=== PATIENT | female | born 1995 | race African-American/Black ===

== ENCOUNTER 2016-08-14 17:10 | Emergency (ER) | payer OTHER, MEDICAID ==
[~2016-08-14] VITALS: Ht 167.6 cm; Wt 60.0 kg
[~2016-08-14 17:10] MED LIST: AMOXICILLIN500 MG PO; BACTRIM DS1 TAB PO; FERR SULFATE325 MG PO; FIORICET PO; IBUPROFEN200 M1 OR; IRON CHEWS; LORTAB 5/3255 MG PO; MACRODANTIN100 MG PO; MOTRIN600 MG/TAB PO; PENICILLN VK500 MG PO; PRE-NATAL PO; PRENATAL1 TA1 PO; TYLENOL325 MG PO; ZOFRAN ODT4 MG PO
[2016-08-14] MEDS ORDERED: CLINDAMYCIN300 M1 PO (17:24)
[2016-08-14 17:36] VITALS: BP 114/72
== END 2016-08-14 17:45 | disposition home or self-care (01) | DRG 759 ==
LOC: ED 17:10
DX: N76.0 Acute vaginitis (principal)

== ENCOUNTER 2016-08-23 11:31 | Emergency (ER) | payer MEDICAID ==
[~2016-08-23] VITALS: Ht 167.6 cm; Wt 60.0 kg
[~2016-08-23 11:31] MED LIST changes: +CLINDAMYCIN300 M1 PO
[2016-08-23 11:36] VITALS: BP 103/54
[2016-08-23] MEDS ORDERED: PREDNISONE50 MG PO (11:40)
[2016-08-23] MEDS ORDERED: BENADRYL 50MG C50 MG PO (11:40)
[2016-08-24] MEDS ORDERED: MEDDOSEPAK PO (10:55)
== END 2016-08-23 12:00 | disposition home or self-care (01) | DRG 607 ==
LOC: ED 11:31
DX: R21 Rash and other nonspecific skin eruption (principal)

== ENCOUNTER 2016-08-24 00:47 | Emergency (ER) | payer MEDICAID ==
[~2016-08-24 00:47] MED LIST changes: +BENADRYL 50MG C50 MG PO; +PREDNISONE50 MG PO
[2016-08-24] MEDS ORDERED: MEDDOSEPAK PO (10:55)
== END 2016-08-24 01:15 | disposition left against medical advice (07) | DRG 951 ==
LOC: ED 00:47 → LWOBS 01:15
DX: Z91.19 Patient's noncompliance with other medical treatment and regimen (principal)

== ENCOUNTER 2016-08-24 09:54 | Emergency (ER) | payer MEDICAID ==
[~2016-08-24] VITALS: Ht 167.6 cm; Wt 66.0 kg
[2016-08-24] MEDS ORDERED: MEDDOSEPAK PO (10:55)
[2016-08-24 11:40] VITALS: BP 106/59
== END 2016-08-24 11:40 | disposition home or self-care (01) | DRG 950 ==
LOC: ED 09:54
DX: T36.8X5D Adverse effect of other systemic antibiotics, subsequent encounter (principal); L29.9 Pruritus, unspecified; R21 Rash and other nonspecific skin eruption

== ENCOUNTER 2018-03-16 09:18 | Emergency (ER) | payer OTHER, MEDICAID ==
[~2018-03-16] VITALS: Ht 167.6 cm; Wt 64.8 kg
[~2018-03-16 09:18] MED LIST changes: +MEDDOSEPAK PO
[2018-03-16] MEDS ORDERED: METRONIDAZOL500 MG PO (10:08)
[2018-03-16 10:16] VITALS: BP 110/74
== END 2018-03-16 10:16 | disposition home or self-care (01) | DRG 761 ==
LOC: ED 09:18
DX: N89.8 Other specified noninflammatory disorders of vagina (principal)

== ENCOUNTER 2020-05-14 | Observation (INO) | payer MEDICAID ==
[~2020-05-14] MED LIST changes: +METRONIDAZOL500 MG PO
--- NOTE | 2020-05-14 18:50 | NUR ---
PT C/O SEVERE ABD PAIN...THOUGHT IT WAS GAS AND TOOK MEDS WITHOUT RELIEF. TO ROOM VIA W/C FOR TRIAGE.
[2020-05-14 19:29] LABS: URINE BILIRUBIN - DIPSTICK NEGATIVE (NEGATIVE); URINE BLOOD DIPSTICK MODERATE (NEGATIVE); URINE COLOR YELLOW; URINE GLUCOSE - DIPSTICK NEGATIVE (NEGATIVE); URINE KETONE NEGATIVE (NEGATIVE); URINE LEUK ESTERASE NEGATIVE (NEGATIVE); URINE PROTEIN - DIPSTICK NEGATIVE (NEG-TRACE); URINE SPECIFIC GRAVITY >=1.030; URINE UROBILINOGEN - DIPSTICK 0.2 E.U./dL (0.2)
[2020-05-14 19:30] LABS: URINE NITRITE - DIPSTICK NEGATIVE (Negative)
[2020-05-14 19:39] LABS: URINE SQUAMOUS EPITHELIAL CELL FEW EPI/hpf (0-FEW); URINE WBC 0-2 WBC/hpf (0-5)
--- NOTE | 2020-05-14 20:00 | NUR ---
ATTEMPTED IV ACCESS WITHOUT SUCCESS, CHARGE NURSE NOTIFIED
--- NOTE | 2020-05-14 20:30 | NUR ---
PT VOMITED LARGE AMOUNT UNDIGESTED FOOD, MEDICATED ORDERED AND PAIN MEDICATION GIVEN WELL, IVF INFUSING ORDERED
[2020-05-14 20:36] LABS: ALKALINE PHOSPHATASE 61 u/l (38-126); AMYLASE 176 u/l (30-110); ANION GAP 13 (6-22 (CALC)); BUN 13 mg/dL (7-17); BUN/CREATININE RATIO 16 (12-20 (CALC)); CARBON DIOXIDE 23 mmol/l (22-30); CHLORIDE 104 mmol/l (95-108); CREATININE 0.8 mg/dL (0.5-1.0); GFR > 60 ML/MIN (>=60 (CALC)); GFR FOR AFR.AMER. > 60 ML/MIN (>=60 (CALC)); LIPASE 1123 u/l (23-300); POTASSIUM 3.3 mmol/l (3.5-5.1); SODIUM 136 mmol/l (137-146)
[2020-05-14 20:37] LABS: IMMATURE GRANULOCYTES 0.3 % (0.0-5.0); MEAN CORPUSCULAR HGB 34.1 pG CALC (26.0-32.0); MEAN CORPUSCULAR HGB CONC 33.2 g/dL CAL (32.0-36.0); NEUT# 8.33 thou/uL (2.00-7.15); RED BLOOD COUNT 3.81 mill/uL (4.20-5.60); RED CELL DISTRI WIDTH 12.1 % (11.5-15.5)
[2020-05-14 20:38] LABS: HEMATOCRIT 39.1 % (37.0-47.0); MEAN CELL VOLUME 102.6 fL CALC (80.0-100.0)
[2020-05-14 20:43] LABS: ALBUMIN 4.8 g/dL (3.2-5.0); BILIRUBIN, TOTAL 0.7 mg/dL (0.0-1.4); SGOT/AST 47 u/l (14-36); TOTAL PROTEIN 8.6 g/dL (6.3-8.2)
--- NOTE | 2020-05-14 21:00 | NUR ---
PT COMPLAINS THAT PAION IS BACK AND JUST BAD ON ARRIVAL, MD NOTIFIED WILL MEDICATE ON RETURN FROM RADIOLOGY.
--- NOTE | 2020-05-14 22:09 | NUR ---
PT RESTING AWARE OF AWAITING CT RESULTS, S.O. REMAINS AT BEDSIDE.
--- NOTE | 2020-05-14 22:27 | NUR ---
RADIOLGY CONTACT FOR CT RESTULS STILL PENDING
--- NOTE | 2020-05-14 22:58 | NUR ---
C/O PAIN 11/17. NOTIFIED.
--- NOTE | 2020-05-14 23:40 | NUR ---
PT MEDICATED ORDERED,E DUCATED REGARDING TIME RESTRAINTS ON PAIN MEDICATIONA ND NPO STATUS, AWARE OFPNEING ADMISSION CALL [facility] WITHIN REACH
--- NOTE | 2020-05-14 23:56 | NUR ---
REPORT CALLED TO [facility]
--- NOTE | 2020-05-15 00:03 | NUR ---
PT TRANSPORTED TO MED SURG VIA WHEELCHAIR, ALL BELONGINGS SENT WITH PT.
[2020-05-15 00:15] VITALS: BP 113/75
--- NOTE | 2020-05-15 00:55 | NUR ---
PT ARRIVED TO UNIT VIA WHEELCHAIR ESCORTED BY ER STAFF. PT C/O PAIN OT HER RUQ, PAINFUL TO PALPATION. ALL OTHER QUADRANTS ARE NON-PAINFUL. BS ACTIVE X 4. CARDIAC SOUNDS AND RYTHYMS ARE WNL. LUNGS CTA X ALL LOBES. SKIN INTACT. IV SITE TO LAC RUNNING D5 1/2 NS AT 125ML/HR. NO S/S OF IV INFECTION OR INFILTRATION. PULSES PALPABLE. PT IS ABLE TO AMBULATE INDEPENDENTLY, INSTRUCTED PT ON HOW TO UNPLUG IV FLUIDS TO TAKE WITH HER TO THE BATHROOM. DENIES URINARY COMPLICATIONS. PT ORIENTED TO THE ROOM, CALL S[facility]AGE, TV CONTROLS, AND LIGHTS. INSTRUCTED ON LOCATION OF THE BATHROOM AND WHEN TO CALL THE NURSE/RESTAURANT BARTENDER FOR HELP. WILL MONITOR THROUGHOUT SHIFT.
[2020-05-15 04:00] VITALS: BP 120/74
--- NOTE | 2020-05-15 04:27 | NUR ---
PT RESTING QUIETLY IN BED WITH HER EYES CLOSED. NO COMPLAINTS VOICED AT THIS TIME. BREATHING EVEN AND UNLABORED. IV FLUIDS CONTINUE TO LAC, 125ML/HR OF D5 1/2 NS. NO S/S OF IV INFECTION OR INFILTRATION NOTED. NO VOMITTING OR NAUSEA SINCE ARRIVING TO UNIT. WILL CONTINUE TO MONITOR.
[2020-05-15 04:32] LABS: HEMATOCRIT 36.4 % (37.0-47.0); HEMOGLOBIN 12.4 g/dl (12.0-16.0); IMMATURE GRANULOCYTES 0.4 % (0.0-5.0); MEAN CELL VOLUME 100.3 fL CALC (80.0-100.0); MEAN CORPUSCULAR HGB 34.2 pG CALC (26.0-32.0); MEAN CORPUSCULAR HGB CONC 34.1 g/dL CAL (32.0-36.0); NEUT# 9.91 thou/uL (2.00-7.15); RED BLOOD COUNT 3.63 mill/uL (4.20-5.60); RED CELL DISTRI WIDTH 11.9 % (11.5-15.5)
[2020-05-15 04:47] LABS: ALKALINE PHOSPHATASE 33 u/l (38-126); BILIRUBIN, TOTAL 0.8 mg/dL (0.0-1.4); BUN 9 mg/dL (7-17); BUN/CREATININE RATIO 14 (12-20 (CALC)); CARBON DIOXIDE 23 mmol/l (22-30); CHLORIDE 106 mmol/l (95-108); CREATININE 0.6 mg/dL (0.5-1.0); GFR > 60 ML/MIN (>=60 (CALC)); GFR FOR AFR.AMER. > 60 ML/MIN (>=60 (CALC)); SGOT/AST 34 u/l (14-36); SODIUM 134 mmol/l (137-146)
[2020-05-15 04:53] LABS: ALBUMIN 3.7 g/dL (3.2-5.0); ANION GAP 9 (6-22 (CALC)); POTASSIUM 4.1 mmol/l (3.5-5.1); TOTAL PROTEIN 6.6 g/dL (6.3-8.2)
--- NOTE | 2020-05-15 06:39 | NUR ---
PT C/O PIAN TO R UPPER QUADRANT. ADMINSTERED PRN PAIN MEDICATION PER ORDER. WILL MONITOR FOR EFFECTIVENESS.
[2020-05-15 07:00] VITALS: BP 97/60
--- NOTE | 2020-05-15 07:20 | NUR ---
REPORT RECEIVED FROM BERNIE FERNANDEZ. PT RESTING IN BED ON RIGHT SIDE; AWAKENS SPONTANEOUSLY AND SHE IS ALERT AND ORIENTED; SLIGHTLY DROWSY. C/O 4/10 ABDOMINAL PAIN; REPORTS THAT DILAUDID WAS EFFECTIVE. RESPIRATIONS EVEN AND UNLABORED ON ROOM AIR. DENIES NAUSEA CURRENTLY. POC REVIWED. PT ENCOURAGED TO VERBALIZE CONCERNS. STATES UNDERSTANDING. SAFETY MEASURES IN PLACE. CALL LIGHT WITHIN REACH.
--- NOTE | 2020-05-15 08:22 | NUR ---
ZOFRAN GIVEN FOR NAUSEA AFTER HAVING CLEAR LIQUID BREAKFAST; PT C/O HEADACHE.
--- NOTE | 2020-05-15 09:10 | NUR ---
DR. APODACA AND ILAN CARPIO AT BEDSIDE. MOTRIN GIVEN FOR HEADACHE.
--- NOTE | 2020-05-15 11:38 | NUR ---
FIRST DOSE OF ORAL CONTRAST ADMINISTERED; PHENERGHAN INFUSING OVER 10 MINUTES FOR NAUSEA.
--- NOTE | 2020-05-15 12:34 | NUR ---
LAST DOSE OF ORAL CONTRAST ADMNINSTERED; RADIOLOGY NOTIFIED. PT AMBULATED TO BATHROOM FOR VOID.
--- NOTE | 2020-05-15 13:35 | NUR ---
DOWNSTAIRS FOR CAT SCAN. 1400: RETURNED TO FLOOR VIA W/C WITHOUT INCIDENCE. UP TO THE BR.
--- NOTE | 2020-05-15 14:00 | NUR ---
PT TRANSPORTED BACK TO MED/SURG ROOM 278 IN STABLE CONDITION VIA WHEELCHAIR ACCOMPANIED BY ANN GRAF.
--- NOTE | 2020-05-15 15:50 | NUR ---
IV SITE TO LAC INFILTRATED; SITE REMOVED WITH CATH INTACT; ICE PACK APPLIED. NEW #22G IV STARTED TO RFA AND IV FLUIDS CONTINUED.
[2020-05-15 16:18] VITALS: BP 106/72
--- NOTE | 2020-05-15 17:47 | NUR ---
ZOSYN INFUSING AT THIS TIME; IV SITE APPEARS HEALTHY. TRANSFER REQUESTS SENT TO [facility]; PT NOTIFIED OF AND CONSENT TO TRANSFER TO OUTSIDE FACILITY FOR APPENDICITIS AND GENERAL SURGERY. CALL LIGHT WITHIN REACH.
--- NOTE | 2020-05-15 18:10 | NUR ---
ROOM ASSIGNMENT RECEIVED FROM MELISSA AT [facility] TRANSFER [facility]ENTER [facility] ON THE SURGICAL UNIT. SPOKE WITH GERMAN AT [facility]; GIVEN 30 MINUTE ETA. PT UPDATED AND CONSENT RECEIVED. ASSISTED INTO SHOWER.
--- NOTE | 2020-05-15 18:43 | NUR ---
[place] [facility] UNIT.
--- NOTE | 2020-05-15 18:51 | NUR ---
PT LEFT UNIT VIA STRETCHER WITH [facility] TRANSPORT TO [facility] IN STABLE CONDITION; ALL BELONGINGS SENT WITH PT. REPORT CALLED TO MEDSUR UNIT.
== END 2020-05-15 18:50 | disposition short-term general hospital (02) ==
PROVIDERS: ADMIT Internal Medicine
DX: K35.80 Unspecified acute appendicitis (principal); K85.90 Acute pancreatitis without necrosis or infection, unspecified; Z20.822 Contact with and (suspected) exposure to COVID-19
CPT/HCPCS: G0378; Q9967

== ENCOUNTER 2020-12-05 07:40 | Emergency (ER) | payer MEDICAID ==
[~2020-12-05] VITALS: Ht 167.6 cm; Wt 70.0 kg
[2020-12-05] MEDS ORDERED: METRONIDAZOLE500 MG PO (08:00)
[2020-12-05] MEDS ORDERED: ZPAK PO (08:54)
[2020-12-05] MEDS ORDERED: ZOFRAN4 M1 PO (08:54)
[2020-12-05 09:00] VITALS: BP 112/55
== END 2020-12-05 09:08 | disposition home or self-care (01) ==
LOC: ED 07:40
DX: J06.9 Acute upper respiratory infection, unspecified (principal); Z20.822 Contact with and (suspected) exposure to COVID-19

== ENCOUNTER 2021-01-23 14:45 | Emergency (ER) | payer BC, MEDICAID ==
[~2021-01-23] VITALS: Ht 167.6 cm; Wt 74.5 kg
[~2021-01-23 14:45] MED LIST changes: +METRONIDAZOLE500 MG PO; +ZOFRAN4 M1 PO; +ZPAK PO
[2021-01-23 15:15] LABS: URINE BILIRUBIN - DIPSTICK NEGATIVE (NEGATIVE); URINE BLOOD DIPSTICK SMALL (NEGATIVE); URINE COLOR YELLOW; URINE GLUCOSE - DIPSTICK NEGATIVE (NEGATIVE); URINE KETONE NEGATIVE (NEGATIVE); URINE LEUK ESTERASE NEGATIVE (NEGATIVE); URINE PROTEIN - DIPSTICK NEGATIVE (NEG-TRACE); URINE UROBILINOGEN - DIPSTICK 0.2 E.U./dL (0.2)
[2021-01-23 15:19] LABS: URINE NITRITE - DIPSTICK NEGATIVE (Negative)
[2021-01-23 15:28] LABS: URINE SQUAMOUS EPITHELIAL CELL MODERATE EPI/hpf (0-FEW); URINE WBC 0-2 WBC/hpf (0-5)
[2021-01-23 15:29] LABS: URINE BACTERIA FEW hpf
[2021-01-23 15:58] LABS: HEMATOCRIT 39.8 % (37.0-47.0); HEMOGLOBIN 13.6 g/dl (12.0-16.0); IMMATURE GRANULOCYTES 0.2 % (0.0-5.0); MEAN CELL VOLUME 101.5 fL CALC (80.0-100.0); MEAN CORPUSCULAR HGB 34.7 pG CALC (26.0-32.0); MEAN CORPUSCULAR HGB CONC 34.2 g/dL CAL (32.0-36.0); NEUT# 2.05 thou/uL (2.00-7.15); RED BLOOD COUNT 3.92 mill/uL (4.20-5.60); RED CELL DISTRI WIDTH 11.9 % (11.5-15.5)
[2021-01-23 16:17] LABS: ALBUMIN 4.2 g/dL (3.2-5.0); BILIRUBIN, TOTAL 0.6 mg/dL (0.0-1.4); BUN 15 mg/dL (7-17); BUN/CREATININE RATIO 18 (12-20 (CALC)); CHLORIDE 102 mmol/l (95-108); CREATININE 0.8 mg/dL (0.5-1.0); GFR > 60 ML/MIN (>=60 (CALC)); GFR FOR AFR.AMER. > 60 ML/MIN (>=60 (CALC)); POTASSIUM 3.5 mmol/l (3.5-5.1); SGOT/AST 31 u/l (14-36); SODIUM 138 mmol/l (137-146); TOTAL PROTEIN 7.6 g/dL (6.3-8.2)
[2021-01-23 16:22] LABS: ALKALINE PHOSPHATASE 55 u/l (38-126); ANION GAP 11 (6-22 (CALC)); CARBON DIOXIDE 29 mmol/l (22-30)
[2021-01-23 16:28] LABS: MYOGLOBIN 30 ng/mL (0 - 62)
[2021-01-23] MEDS ORDERED: ULTRAM50 M1 PO (18:05)
[2021-01-23] MEDS ORDERED: CYCLOBENZAPRINE10 MG PO (18:05)
[2021-01-23 18:10] VITALS: BP 110/55
== END 2021-01-23 18:20 | disposition home or self-care (01) | DRG 206 ==
LOC: ED 14:45
PROVIDERS: Emergency Medicine
DX: S23.41XA Sprain of ribs, initial encounter (principal); X58.XXXA Exposure to other specified factors, initial encounter
CPT/HCPCS: Q9967

== ENCOUNTER 2021-06-20 07:45 | Emergency (ER) | payer MEDICAID ==
[~2021-06-20] VITALS: Ht 167.6 cm; Wt 68.0 kg
[~2021-06-20 07:45] MED LIST changes: +CYCLOBENZAPRINE10 MG PO; +ULTRAM50 M1 PO
[2021-06-20 08:01] VITALS: BP 118/66
[2021-06-20] MEDS ORDERED: KEFLEX500 MG PO (08:12)
[2021-06-20 08:32] VITALS: BP 118/66
== END 2021-06-20 08:40 | disposition home or self-care (01) ==
LOC: ED 07:45
DX: L08.9 Local infection of the skin and subcutaneous tissue, unspecified (principal); S61.215A Laceration without foreign body of left ring finger without damage to nail, initial encounter; W25.XXXA Contact with sharp glass, initial encounter

== ENCOUNTER 2021-09-18 00:15 | Emergency (ER) | payer MEDICAID ==
[~2021-09-18] VITALS: Ht 167.6 cm; Wt 72.0 kg
[~2021-09-18 00:15] MED LIST changes: +KEFLEX500 MG PO
[2021-09-18 00:28] VITALS: BP 111/69
[2021-09-18 00:30] VITALS: BP 112/65
[2021-09-18 00:45] VITALS: BP 110/64
[2021-09-18 01:00] VITALS: BP 108/73
[2021-09-18] MEDS ORDERED: BIRTH CONTROL (01:05)
[2021-09-18 01:15] VITALS: BP 113/70
[2021-09-18 01:20] VITALS: BP 113/70
== END 2021-09-18 01:20 | disposition left against medical advice (07) ==
LOC: ED 00:15
DX: S01.112A Laceration without foreign body of left eyelid and periocular area, initial encounter (principal); Y04.0XXA Assault by unarmed brawl or fight, initial encounter; Y92.009 Unspecified place in unspecified non-institutional (private) residence as the place of occurrence of the external cause